=== PATIENT | male | born 2000 | race Caucasian/White ===

== ENCOUNTER 2023-07-03 10:56 | Emergency (ER) | payer OTHER ==
[~2023-07-03] VITALS: Ht 182.9 cm; Wt 81.6 kg
[2023-07-03 10:57] VITALS: BP 132/62; PULSE 60; RESP 14; TEMP 97.5; O2SAT 95
[2023-07-03 11:30] VITALS: BP 132/62; PULSE 60; RESP 14; TEMP 97.5; O2SAT 95
[2023-07-03] MEDS ORDERED: ACETAMINOPHEN EXTRA STRENGTH 500 MG TAB PO ONE (11:30)
[2023-07-03] MEDS ORDERED: ACET-10509 PO (12:25)
== END 2023-07-03 12:29 | disposition home or self-care (01) ==
LOC: MED 10:56
DX: S93.692A Other sprain of left foot, initial encounter (principal); X58.XXXA Exposure to other specified factors, initial encounter; Y93.89 Activity, other specified; Y92.89 Other specified places as the place of occurrence of the external cause; Y99.8 Other external cause status
CPT/HCPCS: 73630; 99283

== ENCOUNTER 2023-09-07 08:15 | Emergency (ER) | payer OTHER ==
[~2023-09-07] VITALS: Ht 167.6 cm; Wt 59.0 kg
[~2023-09-07 08:15] MED LIST: ACET-10509 PO
[2023-09-07 08:31] VITALS: BP 112/68; PULSE 89; RESP 18; TEMP 97; O2SAT 98
[2023-09-07] MEDS ORDERED: IBUP-2213 PO (09:08)
[2023-09-07 09:15] VITALS: BP 112/68; PULSE 89; RESP 18; TEMP 97; O2SAT 98
== END 2023-09-07 09:16 | disposition home or self-care (01) ==
LOC: MED 08:15
DX: J02.8 Acute pharyngitis due to other specified organisms (principal); B97.89 Other viral agents as the cause of diseases classified elsewhere; Z79.1 Long term (current) use of non-steroidal anti-inflammatories (NSAID); Z79.899 Other long term (current) drug therapy
CPT/HCPCS: 87081; 99283

== ENCOUNTER 2023-10-05 09:53 | Emergency (ER) | payer OTHER ==
[~2023-10-05] VITALS: Ht 182.9 cm; Wt 85.3 kg
[~2023-10-05 09:53] MED LIST changes: +IBUP-2213 PO
[2023-10-05 10:08] VITALS: BP 112/79; PULSE 70; RESP 18; TEMP 98.8; O2SAT 97
[2023-10-05] MEDS ORDERED: BENZ100C6 PO (11:56)
[2023-10-05] MEDS ORDERED: ALBU0.0912 IH (11:56)
[2023-10-05] MEDS ORDERED: FLONAS NS (11:56)
[2023-10-05 12:19] LABS: FLU A ANTIGEN negative (NEGATIVE); FLU B ANTIGEN NEGATIVE (NEGATIVE)
== END 2023-10-05 12:05 | disposition home or self-care (01) ==
LOC: MED 09:53
DX: J02.9 Acute pharyngitis, unspecified (principal); Z20.822 Contact with and (suspected) exposure to COVID-19; Z79.899 Other long term (current) drug therapy; Z79.1 Long term (current) use of non-steroidal anti-inflammatories (NSAID)
CPT/HCPCS: 99283

== ENCOUNTER 2023-10-16 18:49 | Emergency (ER) | payer OTHER ==
[~2023-10-16] VITALS: Ht 182.9 cm; Wt 81.6 kg
[~2023-10-16 18:49] MED LIST changes: +ALBU0.0912 IH; +BENZ100C6 PO; +FLONAS NS
[2023-10-16 19:01] VITALS: BP 124/68; PULSE 118; RESP 20; TEMP 100.6; O2SAT 96
[2023-10-16 19:10] VITALS: BP 124/68; PULSE 118; RESP 20; TEMP 100.6; O2SAT 96
[2023-10-16 19:42] LABS: FLU B ANTIGEN NEGATIVE (NEGATIVE)
[2023-10-16 19:44] LABS: FLU A ANTIGEN POSITIVE (NEGATIVE)
[2023-10-16] MEDS ORDERED: MUC600 PO (19:49)
[2023-10-16] MEDS ORDERED: PROM118S6 PO (19:49)
[2023-10-16] MEDS ORDERED: TAM75 PO (19:49)
[2023-10-16] MEDS: OSELTAMIVIR PHOSPHATE 75 MG CAP PO ONE (19:52)
[2023-10-16] MEDS: KETOROLAC 30 MG/ML VIAL IM ONE (19:55)
[2023-10-16] MEDS: ACETAMINOPHEN EXTRA STRENGTH 500 MG TAB PO ONE (19:59)
== END 2023-10-16 20:01 | disposition home or self-care (01) ==
LOC: MED 18:49
DX: J10.1 Influenza due to other identified influenza virus with other respiratory manifestations (principal); Z20.822 Contact with and (suspected) exposure to COVID-19; Z79.899 Other long term (current) drug therapy
CPT/HCPCS: 87426; 87804; 96372; 99283; J1885

== ENCOUNTER 2023-11-24 09:43 | Emergency (ER) | payer OTHER ==
[~2023-11-24] VITALS: Ht 182.9 cm; Wt 81.6 kg
[~2023-11-24 09:43] MED LIST changes: +MUC600 PO; +PROM118S6 PO; +TAM75 PO
[2023-11-24 09:51] VITALS: BP 117/69; PULSE 79; RESP 19; TEMP 97.7; O2SAT 97
[2023-11-24] MEDS ORDERED: LOPE-289 PO (10:09)
[2023-11-24] MEDS ORDERED: IBUP-2213 PO (10:09)
[2023-11-24] MEDS ORDERED: ONDA8TAB87 PO (10:09)
[2023-11-24] MEDS: KETOROLAC 60 MG/2 ML VIAL IM ONE (10:17)
[2023-11-24] MEDS: ONDANSETRON 4 MG ODT PO ONE (10:17)
[2023-11-24 10:35] VITALS: BP 117/69; PULSE 79; RESP 19; TEMP 97.7; O2SAT 97
== END 2023-11-24 10:35 | disposition home or self-care (01) ==
LOC: MED 09:43
DX: R10.84 Generalized abdominal pain (principal); R11.2 Nausea with vomiting, unspecified; R19.7 Diarrhea, unspecified; F12.90 Cannabis use, unspecified, uncomplicated; Z98.890 Other specified postprocedural states; Z79.899 Other long term (current) drug therapy
CPT/HCPCS: 96372; 99283; J1885; Q0162

== ENCOUNTER 2024-01-04 11:06 | Emergency (ER) | payer OTHER ==
[~2024-01-04] VITALS: Ht 182.9 cm; Wt 81.6 kg
[~2024-01-04 11:06] MED LIST changes: +LOPE-289 PO; +ONDA8TAB87 PO
[2024-01-04 11:27] VITALS: BP 100/58; PULSE 70; RESP 18; TEMP 98.6; O2SAT 96
[2024-01-04] MEDS ORDERED: IBUP-2213 PO (12:13)
[2024-01-04] MEDS ORDERED: BPM/480S48 PO (12:13)
[2024-01-04] MEDS ORDERED: BENZ-300 PO (12:13)
[2024-01-04 12:18] VITALS: BP 100/58; PULSE 70; RESP 18; TEMP 98.6; O2SAT 96
[2024-01-04 14:57] LABS: FLU A ANTIGEN negative (NEGATIVE)
[2024-01-04 14:59] LABS: FLU B ANTIGEN POSITIVE (NEGATIVE)
[2024-01-04] MEDS ORDERED: TAM75 PO (15:10)
== END 2024-01-04 12:18 | disposition home or self-care (01) ==
LOC: MED 11:06
DX: J10.1 Influenza due to other identified influenza virus with other respiratory manifestations (principal); Z20.822 Contact with and (suspected) exposure to COVID-19; Z79.1 Long term (current) use of non-steroidal anti-inflammatories (NSAID); Z79.899 Other long term (current) drug therapy
CPT/HCPCS: 99283

== ENCOUNTER 2024-01-08 05:09 | Emergency (ER) | payer OTHER ==
[~2024-01-08] VITALS: Ht 182.9 cm; Wt 81.6 kg
[~2024-01-08 05:09] MED LIST changes: +BENZ-300 PO; +BPM/480S48 PO
[2024-01-08 05:15] VITALS: BP 119/72; PULSE 60; RESP 16; TEMP 97.9; O2SAT 97
[2024-01-08 05:29] VITALS: BP 119/72; PULSE 60; RESP 16; TEMP 97.9; O2SAT 97
[2024-01-08] MEDS: KETOROLAC 30 MG/ML VIAL IM ONE (05:36)
== END 2024-01-08 05:38 | disposition home or self-care (01) ==
LOC: MED 05:09
DX: J02.9 Acute pharyngitis, unspecified (principal); Z79.1 Long term (current) use of non-steroidal anti-inflammatories (NSAID); Z79.899 Other long term (current) drug therapy
CPT/HCPCS: 96372; 99283; J1885